=== PATIENT | female | born 1935 | race Caucasian/White ===

== ENCOUNTER → 2016-02-26 | Outpatient (CLI) | payer OTHER, MEDICARE ==
[~2016-02-26] VITALS: Ht 170.2 cm; Wt 71.8 kg
[~2016-02-26] MED LIST: ATIVAN0.5 MG PO; IBUPROFEN 200200 M1 PO; LEXAPRO5 MG PO; MOBIC15 MG PO
--- NOTE | ~2016-02-26 | HPC ---
[facility] [address] [place] [address] PAIN MANAGEMENT CONSULTATION Name: PERNELL CERVANTES Room #: REG DINA Coates.#: [id number] Admission: 02/26/16 Attend Phys: Doron Dumont DO Discharge: Date of : 37 Report #: [id number] THIS REPORT FOR: //name// CC: Los Dumont DATE OF SERVICE: 02/26/2016 The patient is a pleasant 80-year-old female, prior treated for symptomatic lumbar radiculopathy, had a series of epidural injections back in 2014 with good efficacy. She was seen 1 time in May of this year for radicular symptoms. Her injection in May afforded near 75% relief for a number of months and only recurred in January. In the interval since we last saw her; however, she developed a mild cough. X-ray found pulmonary nodules. She was diagnosed with lung cancer that was treated and finished chemoradiation therapy in December. Fortunately, she noted about 40% reduction in the tumor. Has had recurrence of back and bilateral leg pain, started [place] without antecedent trauma and overuse. Rates the pain 4/10, exacerbated with walking and driving. Notes pain is in the low back, right greater than left leg, posterior thigh. PHYSICAL EXAMINATION: Shows 80-year-old female, BMI is 24.8 kilograms per meter squared. Blood pressure is 146/80, pulse 86, respirations 16. Rises from chair using armrest, nominally antalgic gait, positive straight leg raise on the right with decreased right plantarflexion strength. We reviewed diagnostic findings including prior MRI from 09/08/2014 noting L5-S1 to have 2 mm anterolisthesis, facet ligamentous arthropathy, likely causing some neural foraminal compromise at this level. ASSESSMENT: Symptomatic lumbar radiculopathy secondary to spinal stenosis. RECOMMENDATIONS: Epidural injection under fluoroscopy today at L5-S1, continue baseline medication unchanged. Follow up p.r.n. ASSESSMENT: Symptomatic lumbar radiculopathy. PROCEDURE: Lumbar epidural injection under fluoroscopy. PROCEDURE NOTE: After both written and informed consent to include risk of spinal cord damage, increased pain, weakness and dural puncture, the patient was taken to the fluoroscopy suite, placed in the prone position. After sterile prep and drape, a skin wheal with lidocaine was raised. A 22-gauge epidural Tuohy needle was inserted in the midline at L5-S1 with good loss to resistance. Negative aspiration for cerebrospinal fluid or blood was noted. Then 1 mL of Omnipaque under biplanar fluoroscopy showed good spread within the epidural space. This was followed with 80 mg of triamcinolone plus 1 mL of 1.5% [place] [address] PAIN MANAGEMENT CONSULTATION Name: PERNELL CERVANTES Room #: LENIN Hennessy#: [id number] Admission: 02/26/16 Attend Phys: Doron Dumont DO Discharge: Date of : 37 Report #: [id number] preservative-free Xylocaine, 0.5 mL Xylocaine was then injected to flush the needle; it was removed. The patient was monitored for an appropriate period of time and discharged in good and stable condition. <ELECTRONICALLY SIGNED> By: Doron Dumont DO 03/02/16 0729 1247 [id number] Doron Dumont DO /nt
[2016-02-26 11:14] VITALS: BP 146/80
== END | disposition home or self-care (01) ==
LOC: PAIN 02-22 07:27
DX: M48.06 Spinal stenosis, lumbar region (principal); M54.16 Radiculopathy, lumbar region; Z85.118 Personal history of other malignant neoplasm of bronchus and lung

== ENCOUNTER → 2016-05-27 | Outpatient (CLI) | payer OTHER, MEDICARE ==
[~2016-05-27] VITALS: Ht 165.1 cm; Wt 74.4 kg
[~2016-05-27] MED LIST changes: +ALEVE220 M1 PO
--- NOTE | ~2016-05-27 | HPC ---
[facility] [place] [address] [place] [address] PAIN MANAGEMENT CONSULTATION Name: PERNELL CERVANTES Room #: REG [facility] Jaxon.#: [id number] Admission: 05/27/16 Attend Phys: Doron Dumont DO Discharge: Date of : 37 Report #: [id number] THIS REPORT FOR: //name// CC: Los Dumont DATE OF SERVICE: 05/27/2016 The patient is a pleasant 80-year-old female, prior seen in the pain clinic 02/26/2016, given epidural injection for ongoing spinal stenosis. The patient returns to pain clinic today noting that the injection afforded near 100% relief for 2 months, pain has gradually recurred. She is less able to walk and stand. Pain is low back, right buttock and leg. PHYSICAL EXAMINATION: Shows 80-year-old female, BMI is 27.3 kilograms per meter squared. Vital signs stable as noted on the EMR. Rises from chair using armrest, modestly antalgic gait. Hip flexion strength is diminished symmetrically. Right leg is generally a little bit weaker to extension and dorsiflexion. Left leg is about 4/5, right leg is 3-4/5. Does have neurogenic claudication with pain exacerbated while walking or standing greater than about 30-40 minutes. MRI is moderately dated from 09/2014 noting degenerative changes throughout the lumbar spine, anterolisthesis at L5-S1. ASSESSMENT: Symptomatic lumbar radiculopathy secondary to spinal stenosis. RECOMMENDATION: 1. Discussion with the patient today about therapeutic options. We have elected to refer to physical therapy for core strengthening and specifically strengthening thighs. She is having difficulty rising from chair. 2. Epidural injection under fluoroscopy today at L5-S1. 3. Follow up simply as needed. PROCEDURE NOTE: Lumbar epidural injection under fluoroscopy. PROCEDURE NOTE: After both written and informed consent to include risk of spinal cord damage, increased pain, weakness and dural puncture, the patient was taken to the fluoroscopy suite, placed in the prone position. After sterile prep and drape, a skin wheal with lidocaine was raised. A 22-gauge epidural Tuohy needle was inserted in the midline at L5-S1 with good loss to resistance. Negative aspiration for cerebrospinal fluid or blood was noted. Then 1 mL of Omnipaque under biplanar fluoroscopy showed good spread within the epidural space. This was followed with 80 mg of triamcinolone plus 1 mL of 1.5% preservative-free Xylocaine, 0.5 mL Xylocaine was then injected to flush the [address] [address] PAIN MANAGEMENT CONSULTATION Name: BILLYPERNELL KASSANDRA Room #: REG [facility].#: [id number] Admission: 05/27/16 Attend Phys: Doron Dumont DO Discharge: Date of : 37 Report #: [id number] needle; it was removed. The patient was monitored for an appropriate period of time and discharged in good and stable condition. <ELECTRONICALLY SIGNED> By: Doron Dumont DO 05/30/16 1538 1228 1531 Doron Dumont DO /nt
[2016-05-27 10:08] VITALS: BP 134/61
== END ==
LOC: PAIN 06:48
DX: M54.16 Radiculopathy, lumbar region (principal); M48.06 Spinal stenosis, lumbar region

== ENCOUNTER → 2017-03-09 | Outpatient (CLI) | payer OTHER, MEDICARE ==
[~2017-03-09] VITALS: Ht 170.2 cm; Wt 76.8 kg
--- NOTE | ~2017-03-09 | HPC ---
[facility] [place] [address] [place] [address] PAIN MANAGEMENT CONSULTATION Name: PERNELL CERVANTES Room #: REG [facility] MAna.#: [id number] Admission: 03/09/17 Attend Phys: Doron Dumont DO Discharge: Date of : 37 Report #: [id number] THIS REPORT FOR: //name// CC: [place] Dumont DATE OF SERVICE: 03/10/2017 The patient is a 81-year-old female, prior seen in Pain Clinic on 02/26/2016, diagnosed with symptomatic lumbar radiculopathy, given a single epidural injection L5-S1. She returns to Pain Clinic today noting the injection afforded 100% relief for about 8 months. Again that injection had been in 02/2016, nearly a year ago. She notes the pain has begun to recur without antecedent trauma and overuse. Notes pain is in the low back, buttock, and left leg, rates as a 10 on a VAS, exacerbated with walking and standing. PHYSICAL EXAMINATION: Shows a 81-year-old female. BMI is 26.5 kg/m2. Vital signs stable as noted in the EMR. Rises from chair using armrest, modestly antalgic gait, positive straight leg raise on the left with slight decreased plantar flexion strength on this side. The patient does not have osteoarthritis by history. Does rate her pain a 10 on a VAS, has not fallen last 3 months. MEDICATIONS: List was reconciled today. SOCIAL HISTORY: She does not use tobacco products. We reviewed her MRI, somewhat dated from 09/2014, which does note anterolisthesis of L5 on S1 with facet degenerative changes noted. ASSESSMENT: Symptomatic lumbar radiculopathy with clinical exam and history. RECOMMENDATIONS: Lumbar epidural injection under fluoroscopy today at L5-S1. Follow up in 3 week for reevaluation. Cancel if doing well. PROCEDURE: Lumbar epidural steroid injection. PROCEDURE NOTE: After both written and informed consent to include risk of spinal cord damage, increased pain, weakness and dural puncture, the patient was taken to the fluoroscopy suite, placed in the prone position. After sterile prep and drape, a skin wheal with lidocaine was raised. A 22-gauge epidural Tuohy needle was inserted in the midline at L5-S1 with good loss to resistance. Negative aspiration for cerebrospinal fluid or blood was noted. Then 1 mL of [address] [address] PAIN MANAGEMENT CONSULTATION Name: PERNELL CERVANTES Room #: REG Klaus Hennessy#: [id number] Admission: 03/09/17 Attend Phys: Doron Dumont DO Discharge: Date of : 37 Report #: [id number] Omnipaque under biplanar fluoroscopy showed good spread within the epidural space. This was followed with 80 mg of triamcinolone plus 1 mL of 1.5% preservative-free Xylocaine, 0.5 mL Xylocaine was then injected to flush the needle; it was removed. The patient was monitored for an appropriate period of time and discharged in good and stable condition. <ELECTRONICALLY SIGNED> By: Doron Dumont DO 03/13/17 0715 0958 09 Doron Dumont DO /nt
[2017-03-09 12:47] VITALS: BP 140/81
== END | disposition home or self-care (01) ==
LOC: PAIN 06:52
DX: M54.16 Radiculopathy, lumbar region (principal); G89.29 Other chronic pain; Z98.890 Other specified postprocedural states

== ENCOUNTER → 2017-03-23 | Outpatient (CLI) | payer OTHER, MEDICARE ==
[~2017-03-23] VITALS: Ht 170.2 cm; Wt 75.3 kg
--- NOTE | ~2017-03-23 | HPC ---
[facility] [place] [address] [place] [address] PAIN MANAGEMENT CONSULTATION Name: PERNELL CERVANTES Room #: REG [facility] Jaxon.#: [id number] Admission: 03/23/17 Attend Phys: Doron Dumont DO Discharge: Date of : 37 Report #: [id number] THIS REPORT FOR: //name// CC: Los Dumont The patient is a 81-year-old female, prior seen in the pain clinic on 03/09/2017. We used an epidural injection for ongoing lumbar radicular pain. The patient had an injection on 03/09/2017, prior injection on 02/26/2016 and prior injections had been in 2015. Returns to the pain clinic today noting all her symptoms are generally improved. She was doing well, but pain continues to be problematic when she climbs stairs. Pain is in the low back, left buttock and leg, posterior aspect. PHYSICAL EXAMINATION: Shows pain with lower extremity flexion. Positive straight leg raise bilaterally, left greater than right. ASSESSMENT: Symptomatic lumbar radiculopathy, clinical exam and history. RECOMMENDATIONS: 1. We will repeat epidural injection under fluoroscopy today. 2. Refer to physical therapy for core stabilization exercises. Epidural injection under fluoroscopy today at L5-S1. Referral to physical therapy for core stabilization. Follow up simply as needed. ASSESSMENT: Symptomatic lumbar radiculopathy. PROCEDURE: Lumbar epidural injection under fluoroscopy. PROCEDURE NOTE: After both written and informed consent to include risk of spinal cord damage, increased pain, weakness and dural puncture, the patient was taken to the fluoroscopy suite, placed in the prone position. After sterile prep and drape, a skin wheal with lidocaine was raised. A 22-gauge epidural Tuohy needle was inserted in the midline at L5-S1 with good loss to resistance. Negative aspiration for cerebrospinal fluid or blood was noted. Then 1 mL of Omnipaque under biplanar fluoroscopy showed good spread within the epidural space. This was followed with 80 mg of triamcinolone plus 1 mL of 1.5% preservative-free Xylocaine, 0.5 mL Xylocaine was then injected to flush the needle; it was removed. The patient was monitored for an appropriate period of time and discharged in good and stable condition. <ELECTRONICALLY SIGNED> By: Doron Dumont DO 03/24/17 0845 1702 2227 Doron Dumont DO /nt
[2017-03-23 12:41] VITALS: BP 135/73
== END ==
LOC: PAIN 07:14
DX: M54.16 Radiculopathy, lumbar region (principal)

== ENCOUNTER → 2017-12-01 | Outpatient (CLI) | payer OTHER, MEDICARE ==
[~2017-12-01] VITALS: Ht 170.2 cm; Wt 79.5 kg
--- NOTE | ~2017-12-01 | HPC ---
[facility] [address] [place] [address] PAIN MANAGEMENT CONSULTATION Name: PERNELL CERVANTES Room #: REG DINA Gerhard#: [id number] Admission: 12/01/17 Attend Phys: Horace Buchanan MD Discharge: Date of : 37 Report #: [id number] THIS REPORT FOR: //name// CC: Los Buchanan DATE OF SERVICE: 12/01/2017 PRIMARY CARE PHYSICIAN: Dr. [place]. FOLLOWUP HISTORY: The patient is an 82-year-old female who has been followed in the pain clinic because of chronic pain. She is experiencing pain and discomfort in the low back area. She has undergone epidural steroid injections and benefits from these. At this juncture, she has noted a recurrence of pain and discomfort involving her left low back area with pain radiating down into her buttocks. She has undergone epidural steroids and gleaned benefits from these. At this juncture, she would like to proceed with another epidural steroid injection. She has gleaned greater than 50% improvement. Rates her pain as a 7/10. Notes that the pain is worse when she is walking, standing, climbing stairs and sometimes problematic while she is sleeping. Notes that the pain started to worsen about 2 weeks ago when she was working on a scrap book. She woke up the next day with significant pain as a result of that. Pain continues to radiate down into her left buttock as well as some pain in both legs with tingling in her toes bilaterally, left side greater than right heel involvement has been noted as well. This is new. ALLERGIES: No known drug allergies. MEDICATIONS: Naprosyn 220 mg daily and Ativan 0.5 mg for depression. PAIN CLINIC ASSESSMENT/PQRS: 1. The patient is not being treated for osteoarthritis or rheumatoid arthritis. 2. Height 5 feet 7 inches, weight 175 pounds, BMI is 27.4. 3. Vital signs: Blood pressure 133/80, pulse 84, respiratory rate 16, room air saturation was 99%. Pain intensity 7/10. 4. Fall risk. The patient has not fallen in the last 3 months. 5. Blood thinner. The patient is not on a blood thinning medication. 6. Hypertension. The patient is not being treated for hypertension. 7. Opioid therapy greater than 6 weeks. The patient is not on an opioid regimen. 8. Risk assessment tool, low risk/0/3. 9. Functional assessment tool. 10. Recreational drug use. The patient denies use of recreational drugs. 11. Tobacco: The patient has never smoked. 12. Alcohol use. The patient drinks an occasional glass of wine. [address] [address] PAIN MANAGEMENT CONSULTATION Name: BILLYPERNELL KASSANDRA Room #: REG [facility] M..#: [id number] Admission: 12/01/17 Attend Phys: Horace Buchanan MD Discharge: Date of : 37 Report #: [id number] PHYSICAL EXAMINATION: GENERAL: The patient is a well-developed, well-nourished white female. Appears her stated age. She is alert and oriented x 3. Affect is appropriate. Speech is fluent. HEENT: Normocephalic, atraumatic. Extraocular eye muscles intact. Sclerae nonicteric. Mucous membranes are moist. NECK: Without JVD or adenopathy. Upper extremity muscle strength is judged to be 5/5 for the major muscle groups. Bulk and symmetry is within normal limits. HEART: Regular rate. ABDOMEN: Nontender. Bowel sounds present. EXTREMITIES: Lower extremity. The patient has pain and discomfort radiating down the lower portion of her back involving the L5-S1 dermatomal distribution primarily on the left side. Also, has some pain and discomfort on the right, notes some tingling in her feet bilaterally. IMPRESSION: 1. Symptomatic lumbar radiculopathy with clinical exams which corroborates lumbar radicular pain. 2. Lumbar spondylosis. 3. Dyspepsia. 4. Esophageal reflux. 5. History of hyperlipidemia. 6. Labyrinthitis. RECOMMENDATIONS: We discussed treatment options with the patient. Risks and benefits of an epidural steroid injection were again reviewed. Possible complications of the procedure were reviewed. They include but are not limited to infection, increased muscle soreness, headache, bleeding, worsening of pain, no improvement in pain, paralysis. The patient elects to proceed. PROCEDURE NOTE: The patient was taken to the procedure area. She was assisted in getting on the examination table. She was placed in the prone position. A pillow was placed on her abdomen to bolster and improve positioning. Fluoroscopy using anterior, posterior as well as lateral viewing were implemented. The patient's back was sterilely prepped with a Betadine solution. A 25-gauge needle was then advanced into the left paraspinous area. An infusion of 0.25% bupivacaine was performed. A 17-gauge Tuohy with loss of resistance technique was used to gain access to the epidural space. There was no CSF, heme or paresthesia. Total of 80 mg Depo-Medrol, 40 mg triamcinolone and 2 mL of 0.25% bupivacaine was injected. The patient tolerated the procedure well. There were no complications. She remained in the pain clinic for an appropriate amount of time. She will follow up in the future as needed. [address] [address] PAIN MANAGEMENT CONSULTATION Name: PERNELL CERVANTES Room #: REG DINA Hennessy#: [id number] Admission: 12/01/17 Attend Phys: Horace Buchanan MD Discharge: Date of : 37 Report #: [id number] We would like to thank you for letting us participate in her care. We hope she continues to improve. By: 1831 5 Horace Buchanan MD /PMT
[2017-12-01 10:55] VITALS: BP 133/80
== END | disposition home or self-care (01) ==
LOC: PAIN 07:26
DX: M47.26 Other spondylosis with radiculopathy, lumbar region (principal); G89.29 Other chronic pain; R10.13 Epigastric pain; K21.9 Gastro-esophageal reflux disease without esophagitis; H83.09 Labyrinthitis, unspecified ear; F32.9 Major depressive disorder, single episode, unspecified; Z79.899 Other long term (current) drug therapy

== ENCOUNTER → 2018-01-03 | Outpatient (CLI) | payer OTHER, MEDICARE ==
[~2018-01-03] VITALS: Ht 170.2 cm; Wt 77.9 kg
[~2018-01-03] MED LIST changes: +NEURONTIN 300300 M1 PO
--- NOTE | ~2018-01-03 | HPC ---
[facility] [place] [address] [place] [address] PAIN MANAGEMENT CONSULTATION Name: PERNELL CERVANTES Room #: REG DINA Jaxon.#: [id number] Admission: 01/03/18 Attend Phys: Horace Buchanan MD Discharge: Date of : 37 Report #: [id number] THIS REPORT FOR: //name// CC: Los Buchanan DATE OF SERVICE: 01/03/2018 CHIEF COMPLAINT: Low back pain that goes down the left buttocks and down to the left thigh severe burning down in my left foot and heel. I can hardly walk on it at times. FOLLOWUP HISTORY: The patient is an 82-year-old female who has been seen in the pain clinic because of chronic pain. She has been experiencing pain, which has been problematic. It involves her left leg. States the pain is radiating down into her left thigh, left foot and heel with a burning sensation. She has undergone epidural steroid injections in the past and gleaned benefits from these. She returns today with a desire to undergo another injection. She has had no complications from the procedure. Gleans generally greater than 50% improvement after the pain. She rates her pain today as an 8/10. Denies any change in bowel or bladder function. ALLERGIES: No known drug allergies. MEDICATIONS: Naprosyn 220 mg daily and Ativan 0.5 mg for depression. PAIN CLINIC ASSESSMENT/PQRS: 1. The patient is not being treated for osteoarthritis or rheumatoid arthritis. 2. Height 5 feet 7 inches, weight 171 pounds, BMI is 26.9. 3. Vital signs: Blood pressure 155/75, pulse 87, respiratory rate 16, room air saturation 98%. 4. Pain intensity 09/15. 5. Fall risk. The patient has not fallen in the last 3 months. 6. Blood thinner. The patient is not on a blood thinning medication. 7. History of hypertension. The patient is not being treated for hypertension. 8. Opiate therapy greater than 6 weeks. The patient's receives her medications from one source, as she is not using opioid medications. Finds that gabapentin is helpful. 9. Risk assessment tool, low 0/3 for opioid use. 10. Functional assessment 47/70. 11. Recreational drug use. The patient denies use of recreational drugs. 12. Tobacco: The patient has never smoked. 13. Alcohol. The patient drinks alcoholic beverages 2-3 on occasion. They are glasses of wine. PHYSICAL EXAMINATION: [facility] [address] [place] [address] PAIN MANAGEMENT CONSULTATION Name: PERNELL CERVANTES [id number] Admission: 01/03/18 Attend Phys: Horace Buchanan MD Discharge: Date of : 37 Report #: [id number] GENERAL: The patient is a well-developed, well-nourished white female. Appears her stated age. She is alert and oriented x 3. Her affect is appropriate. Speech is fluent. HEENT: Normocephalic, atraumatic. Extraocular eye muscles intact. Sclerae nonicteric. Mucous membranes are moist. NECK: Without adenopathy or JVD. Upper extremity muscle strength is judged to be 5/5 for the major muscle groups. Bulk and symmetry is within normal limits. HEART: Regular rate. ABDOMEN: Nontender. Bowel sounds are present. EXTREMITIES: Lower extremity pain is rated at 8. The patient is experiencing pain in the low portion of her back with pain that is radiating down into the L5-S1 dermatomal distribution on the left. Note some burning sensation and cramping in her leg in the L5-S1 dermatomal distribution. IMPRESSION: 1. Symptomatic lumbar radiculopathy with clinical exam which correlates with lumbar radicular pain. 2. Lumbar spondylosis. 3. Dyspepsia. 4. Esophageal reflux. 5. History of hyperlipidemia. 6. Labyrinthitis. RECOMMENDATIONS: We discussed treatment options with the patient. Risks and benefits of an epidural steroid injection were again reviewed. Possible complications of the procedure were discussed and they include but are not limited to infection, increased muscle soreness, headache, bleeding, worsening pain, no improvement in pain and the patient elects to proceed. PROCEDURE NOTE: The patient was taken to the procedure area. She was assisted in getting on the examination table. Her back was positioned using a pillow to bolster and improve positioning. Betadine was used to prepare the patient's back. Fluoroscopy using anterior, posterior as well as lateral viewing were implemented. A midline approach in a left paramedian direction was elected at L5-S1. A 0.25% bupivacaine was infiltrated. A 17-gauge Tuohy with loss of resistance technique was used to gain access to the epidural space. There was no CSF, heme or paresthesia. Total of 80 mg Depo-Medrol, 40 mg triamcinolone and 2 mL of 0.25% bupivacaine was injected. The patient tolerated the procedure well. There were no complications. She remained in the Pain Clinic for an appropriate amount of time. The patient was given a script for gabapentin 300 mg 1 p.o. t.i.d. She will continue to try this medication. She will call us if she has any concerns. [address] [address] PAIN MANAGEMENT CONSULTATION Name: PERNELL CERVANTES Room #: REG DINA CoatesDanny#: [id number] Admission: 01/03/18 Attend Phys: Horace Buchanan MD Discharge: Date of : 37 Report #: [id number] We would like to thank you for letting us participate in her care. We hope she continues to improve. By: [id number] Horace Buchanan MD /pratik
[2018-01-03 09:53] VITALS: BP 155/75
== END | disposition home or self-care (01) ==
LOC: PAIN 05:44
DX: M47.26 Other spondylosis with radiculopathy, lumbar region (principal); G89.29 Other chronic pain; K21.9 Gastro-esophageal reflux disease without esophagitis; E78.5 Hyperlipidemia, unspecified; R10.13 Epigastric pain; F32.9 Major depressive disorder, single episode, unspecified; H83.09 Labyrinthitis, unspecified ear; Z79.899 Other long term (current) drug therapy; Z98.890 Other specified postprocedural states

== ENCOUNTER → 2018-04-06 | Outpatient (CLI) | payer OTHER, MEDICARE ==
[~2018-04-06] VITALS: Ht 170.2 cm; Wt 78.7 kg
--- NOTE | ~2018-04-06 | HPC ---
[facility] [place] [address] [place] [address] PAIN MANAGEMENT CONSULTATION Name: PERNELL CERVANTES Room #: REG DINA Jaxon.#: [id number] Admission: 04/06/18 ������������������ Attend Phys: Horace Buchanan MD Discharge: ������������������ Date of : 37 Report #: [id number] THIS REPORT FOR: //name// CC: Los Buchanan DATE OF SERVICE: 04/06/2018 CHIEF COMPLAINT: Low back pain that goes down into the right buttocks and down into the right leg and into the foot. HISTORY: The patient is an 82-year-old female who has been seen in the Pain Clinic in the past because of lumbar radiculopathy. She has undergone epidural steroid injections and gleaned benefits from these. She returns today indicating that she is having pain in the right L5-S1 area. It is radiating down into her leg with numbness and tingling down into her foot. She has undergone epidural steroid injections in the past and would like to proceed with an injection today. She rates her pain as a 4/10. She has a history of lumbar spondylosis and radiculopathy. ALLERGIES: No known drug allergies. MEDICATIONS: Gabapentin 300 mg t.i.d., ibuprofen 200 mg t.i.d., Ativan 0.5 mg p.r.n., depression. PAIN CLINIC ASSESSMENT/PQRS: 1. The patient is not being treated for osteoarthritis or rheumatoid arthritis. 2. Height 5 feet 7 inches, weight 173 pounds, BMI is 27.2. 3. Vital signs: Blood pressure 137/87, pulse 89, respiratory rate 16, room air saturation 96%. 4. Pain intensity, 4/10. 5. Fall risk. The patient has not fallen in the last 3 months. 6. Blood thinner. The patient is not on a blood thinning medication. 7. Hypertension. The patient is not being treated for hypertension. 8. Opioid greater than 6 weeks. The patient is not receiving opioid medication on a regular basis. 9. Risk assessment tool, low for opioid, 0/3 for opioid use. 10. Functional assessment tool, 47/70. 11. Recreational drug use. The patient denies use of recreational drugs. 12. Tobacco: The patient has never smoked. 13. Alcohol. The patient drinks about one alcoholic beverage weekly. PHYSICAL EXAMINATION: GENERAL: The patient is a well-developed, well-nourished white female. Appears her stated age. She is alert and oriented x 3. Her affect is appropriate. Speech is fluent. [address] [address] PAIN MANAGEMENT CONSULTATION Name: PERNELL CERVANTES Room #: REG [facility]#: [id number] Admission: 04/06/18 ������������������ Attend Phys: Horace Buchanan MD Discharge: ������������������ Date of : 37 Report #: [id number] HEENT: Normocephalic, atraumatic. Extraocular eye muscles intact. Sclerae nonicteric. Mucous membranes are moist. NECK: Without adenopathy or JVD. Upper extremity muscle strength is judged to be 5-/5 for the major muscle groups in the upper extremity. Bulk and symmetry is within normal limits. HEART: Regular rate. ABDOMEN: Nontender. Bowel sounds present. EXTREMITIES: Lower extremity muscle strength is judged to be 5-/5 for the lower extremity. The patient has pain and discomfort, which today is more problematic in the right, L5-S1 dermatomal distribution. IMPRESSION: 1. Symptomatic lumbar radiculopathy with a correlation of pain radiating down the L5-S1 dermatomal distribution on the right. 2. Lumbar spondylosis. 3. Dyspepsia. 4. Esophageal reflux. 5. History of hyperlipidemia. 6. Labyrinthitis. RECOMMENDATIONS: We discussed treatment options with the patient. Risks and benefits of an epidural steroid injection were discussed. Possible complications of the procedure were reviewed. They include but are not limited to infection, worsening pain, no improvement in pain, nerve damage, paralysis and the patient elects to proceed. PROCEDURE NOTE: The patient was taken to the procedure area. She was assisted in getting on the examination table. Her back was sterilely prepped with a Betadine solution. A pillow had been placed under her abdomen to bolster improve positioning. Fluoroscopy using anterior and posterior as well as lateral viewing were implemented. The right L5-S1 area was infiltrated with 0.25% bupivacaine using a 25-gauge needle. A 17-gauge Tuohy with loss of resistance technique using a right paramedian approach was undertaken and there was no CSF, heme or paresthesia. A total of 80 mg Depo-Medrol, 40 mg triamcinolone and 2 mL of 0.25% bupivacaine was injected. The patient's pain decreased to 0 at the time of discharge. An 8 seconds fluoroscopy time was used. We would like to thank you for letting us participate in her care. We hope she continues to improve. ��������������������������������������������� ���������������������������������������� By: ��������������������������������������������� [id number] Horace Buchanan MD /pratik
[2018-04-06 08:28] VITALS: BP 137/87
--- NOTE | 2018-04-06 08:35 | NUR ---
Pain Clinic Assessment: 1. History of Osteoarthritis: NO History of Rheumatoid Arthritis: NO 2. Height: 5 ft. 7 in. 170.2 cm. Weight: 173.4 lb. oz. 78.654 kg. Patient's BMI: 27.2 3. Vital Signs: BP: 137/87 Pulse: 89 Resp: 16 Temp: 02 Sat: 96 ECG Mon: 4. Pain Intensity: 4 5. Fall Risk: Dizziness: N Needs help standing or walking: N Fallen in the last 3 months: N Fall risk comments: 6. Patient on Blood Thinner: None 7. History of Hypertension: N 8. Opioid Therapy greater than 6 weeks: N Opiate Contract Signed: 9. Risk Assessment Tool Provided: LOW RISK 0/3 10. Functional Assessment Tool: 47/ 11. Recreational Drug Use: Never Drug Type: Tobacco Use: Never Smoker Tobacco Type: Amount or Packs/day: How Many Years: Alcohol Use: Yes Frequency: Weekly Quant: 1
== END | disposition home or self-care (01) ==
LOC: PAIN 04-04 07:45
DX: M47.26 Other spondylosis with radiculopathy, lumbar region (principal); G89.29 Other chronic pain; K21.9 Gastro-esophageal reflux disease without esophagitis; F32.9 Major depressive disorder, single episode, unspecified; H83.09 Labyrinthitis, unspecified ear; Z79.899 Other long term (current) drug therapy; Z98.890 Other specified postprocedural states

== ENCOUNTER → 2018-07-11 | Outpatient (CLI) | payer OTHER, MEDICARE ==
[~2018-07-11] VITALS: Ht 170.2 cm; Wt 78.1 kg
--- NOTE | ~2018-07-11 | HPC ---
[facility] [place] [address] PAIN MANAGEMENT CONSULTATION Name: PERNELL CERVANTES Room #: REG DINA DreadCapri.#: [id number] Admission: 07/11/18 ������������������ Attend Phys: Horace Buchanan MD Discharge: ������������������ Date of : 37 Report #: [id number] THIS REPORT FOR: //name// CC: Los Buchanan DATE OF SERVICE: 07/11/2018 FOLLOWUP COMPLAINT: Here for another epidural injection. HISTORY: The patient is an 82-year-old female who has been seen in the Pain Clinic because of lumbar radiculopathy. She has undergone epidural steroid injections and found these beneficial. She returns today indicating that she is having pain in the lower portion of her back with pain that is radiating down into her left foot. She notes a tingling, numbness and tenderness associated with it. Rates the pain as a 6/10. Walking, standing, going up and down stairs are problematic. She has continued to use medications as well as heat. She has a history of lumbar spondylosis and radial and lumbar radiculopathy. ALLERGIES: No known drug allergies. CURRENT MEDICATIONS: Gabapentin 300 mg t.i.d., ibuprofen 200 mg t.i.d., Ativan 0.5 mg for depression. PAIN CLINIC ASSESSMENT/PQRS: 1. The patient is not being treated for osteoarthritis or rheumatoid arthritis. 2. Height is 5 feet 7 inches, weight 172 pounds, BMI is 27. 3. Vital Signs: Blood pressure 151/75, pulse 86, respiratory rate 20, room air saturation 100%. 4. Pain intensity, 6/10. 5. Fall history: The patient has not fallen in the last 3 months. 6. Blood thinner. The patient is not on a blood thinning medication. 7. Hypertension. The patient is not being treated for hypertension. 8. Opioids greater than 6 weeks. The patient is not on an opioid contract. 9. Risk assessment tool, 0/3 for opioid use. 10. Functional assessment tool, 47/70 11. Recreational drug use. The patient denies. 12. Tobacco: The patient never smoked. 13. Alcohol: The patient occasionally drinks alcoholic beverages. PHYSICAL EXAMINATION: GENERAL: The patient is a well-developed, well-nourished white female. Appears her stated age. She is alert and oriented x 3. Her affect is appropriate. Speech is fluent. HEENT: Normocephalic, atraumatic. Extraocular eye muscles intact. Sclerae nonicteric. Mucous membranes are moist. [address] [address] PAIN MANAGEMENT CONSULTATION Name: PERNELL CERVANTES Room #: REG [facility]#: [id number] Admission: 07/11/18 ������������������ Attend Phys: Horace Buchanan MD Discharge: ������������������ Date of : 37 Report #: [id number] NECK: Without adenopathy or JVD. HEART: Regular rate. ABDOMEN: Nontender. Bowel sounds present. EXTREMITIES: Upper extremities. Muscle strength is judged to be 5-/5 for the major muscle groups of the upper extremity. Bulk and symmetry is within normal limits. Lower extremity muscle strength is judged to be 5-/5 for the major muscle groups in the lower extremity. The patient has pain which involves the left leg. She has had pain that was involving the right leg in the past in the L5-S1 area. She notes some numbness and weakness in the affected area. IMPRESSION: 1. Symptomatic lumbar radiculopathy with correlation and pain radiating down into the left L5-S1 dermatomal distribution. 2. Lumbar spondylosis. 3. Dyspepsia. 4. Esophageal reflux. 5. History of hyperlipidemia. 6. Labyrinthitis. RECOMMENDATIONS: We discussed treatment options with the patient. Risks and benefits of an epidural steroid injection were again discussed. They could include but are not limited to infection, worsening of pain, no improvement in pain, headache, bleeding, nerve damage, muscle soreness and the patient elects to proceed. PROCEDURE NOTE: The patient was taken to the procedure area. She was then assisted in getting on the examination table. Her back was sterilely prepped with a Betadine solution. A 0.25% bupivacaine was infiltrated in the left low back area in the midline at L5-S1. A 0.25% bupivacaine was infiltrated using a 25-gauge needle. A 17-gauge Tuohy with loss of resistance technique was then used to gain access to the epidural space. There was no CSF, heme or paresthesia. Total of 80 mg Depo-Medrol, 40 mg triamcinolone and 2 mL of 0.25% bupivacaine was injected. Total fluoroscopy time was 11 seconds. The patient's pain at the time of discharge, decreased from 6-0 at the time of discharge. She will follow up in the future as needed. We would like to thank you for letting us participate in her care. We hope she continues to improve. ��������������������������������������������� ���������������������������������������� By: ��������������������������������������������� [id number] Horace Buchanan MD /pratik
[2018-07-11 13:26] VITALS: BP 151/75
--- NOTE | 2018-07-11 13:34 | NUR ---
Pain Clinic Assessment: 1. History of Osteoarthritis: HANDS History of Rheumatoid Arthritis: NO 2. Height: 5 ft. 7 in. 170.2 cm. Weight: 172.2 lb. oz. 78.109 kg. Patient's BMI: 27.0 3. Vital Signs: BP: 151/75 Pulse: 86 Resp: 20 Temp: 02 Sat: 100 ECG Mon: 4. Pain Intensity: 6 5. Fall Risk: Dizziness: N Needs help standing or walking: N Fallen in the last 3 months: N Fall risk comments: 6. Patient on Blood Thinner: None 7. History of Hypertension: N 8. Opioid Therapy greater than 6 weeks: N Opiate Contract Signed: 9. Risk Assessment Tool Provided: LOW RISK 0/3 10. Functional Assessment Tool: 47/ 11. Recreational Drug Use: Never Drug Type: Tobacco Use: Never Smoker Tobacco Type: Amount or Packs/day: How Many Years: Alcohol Use: Yes Frequency: Monthly Quant:
== END | disposition home or self-care (01) ==
LOC: PAIN 07:01
DX: M47.26 Other spondylosis with radiculopathy, lumbar region (principal); G89.29 Other chronic pain; K21.9 Gastro-esophageal reflux disease without esophagitis; E78.5 Hyperlipidemia, unspecified; F32.9 Major depressive disorder, single episode, unspecified; Z79.899 Other long term (current) drug therapy; Z87.19 Personal history of other diseases of the digestive system; Z98.890 Other specified postprocedural states

== ENCOUNTER → 2018-10-12 | Outpatient (CLI) | payer OTHER, MEDICARE ==
[~2018-10-12] VITALS: Ht 170.2 cm; Wt 76.8 kg
--- NOTE | ~2018-10-12 | HPC ---
[facility] [place] [address] PAIN MANAGEMENT CONSULTATION Name: PERNELL CERVANTES Room #: REG DINA Jaxon.#: [id number] Admission: 10/12/18 ������������������ Attend Phys: Horace Buchanan MD Discharge: ������������������ Date of : 37 Report #: [id number] THIS REPORT FOR: //name// CC: Los Buchanan DATE OF SERVICE: 10/12/2018 CHIEF COMPLAINT: Pain in the low back area at the left and right side, right is worse. HISTORY: The patient is an 83-year-old female who has been followed in the pain clinic. She has problems with lumbar radiculopathy. Epidural steroid injections have been helpful. She returns today indicating that her pain has increased. She is having some numbness, tingling associated with it. Rates her pain today as a 6/10 with use of Advil. Describes it as numbness, tingling, tenderness, and deep ache, which is worse with standing, walking, climbing stairs, activity, and sitting on the toilet. She has gleaned benefits in the past and would like to proceed with an epidural steroid injection at this point. ALLERGIES: No known drug allergies. CURRENT MEDICATIONS: Gabapentin 300 mg t.i.d., ibuprofen 200 mg t.i.d., and Ativan 0.5 mg for depression. PAIN CLINIC ASSESSMENT/PQRS: 1. The patient is not being treated for osteoarthritis or rheumatoid arthritis. 2. Height 5 feet 7 inches, weight 169 pounds, BMI is 26.5. 3. Vital signs: Blood pressure 139/79, pulse 86, respiratory rate 16, room air saturation 98%. 4. Pain intensity 6/10 with use of Advil. 5. Fall risk. The patient has not fallen in the last 3 months. 6. Blood thinner. The patient is not on a blood thinning medication. 7. Hypertension. The patient is not being treated for hypertension. 8. Opioids greater than 6 weeks. The patient is opioids on a regular basis. 9. Risk assessment tool, low for opioid use. 10. Functional assessment tool, 47. 11. Recreational drug use. The patient denies. 12. Tobacco: The patient has never smoked. 13. Alcohol: The patient occasionally drinks alcoholic beverage. PHYSICAL EXAMINATION: GENERAL: The patient is a well-developed, well-nourished white female. Appears her stated age. She is alert and oriented x 3. [place] [address] PAIN MANAGEMENT CONSULTATION Name: PERNELL CERVANTES Room #: REG [facility]#: [id number] Admission: 10/12/18 ������������������ Attend Phys: Horace Buchanan MD Discharge: ������������������ Date of : 37 Report #: [id number] Speech is fluent. HEENT: Normocephalic, atraumatic. Extraocular eye muscles intact. Sclerae nonicteric. Mucous membranes are moist. NECK: Without adenopathy or JVD. HEART: Regular rate. ABDOMEN: Nontender. Bowel sounds present. EXTREMITIES: Upper extremity muscle strength is judged to be 5-/5 for the major muscle groups in the upper extremity. The patient without significant scoliosis, kyphosis, or lordosis. The patient has pain in the lower portion of her back. Has pain that is radiating down into her left and the right leg, right more problematic than left. This is the L5-S1 dermatomal distribution. Has a perception of numbness and weakness in the lower extremities. IMPRESSION: 1. Symptomatic lumbar radiculopathy with correlation of pain radiating down into the left L5-S1 area as well as the right side more problematic today. 2. Lumbar spondylosis. 3. Dyspepsia. 4. Esophageal reflux. 5. History of hyperlipidemia. 6. Labyrinthitis. RECOMMENDATIONS: We discussed treatment options with the patient. Risks and benefits of an epidural steroid injection were again reviewed. They include but are not limited to infection, worsening of pain, no improvement in pain, and the patient elects to proceed. PROCEDURE NOTE: The patient was taken to the procedure area. She was then assisted in getting on examination table. Her back was sterilely prepped with a Betadine solution. A 0.25% bupivacaine was infiltrated in the L5-S1 area. A pillow had been placed under the abdomen to bolster and improve positioning. The area was infiltrated with 0.25% bupivacaine using a 25-gauge needle. A 17-gauge Tuohy with loss of resistance technique was then used to gain access to the epidural space. There was no CSF, heme, or paresthesia. A total of 9 seconds fluoroscopy time was used. The patient's pain decreased to 0 at the time of discharge. 80 mg Depo-Medrol, 40 mg triamcinolone, and 3 mL of 0.25% bupivacaine was injected to help with the pain control. The patient was then taken to the recovery room. She remained in the recovery room for an appropriate amount of time. She will follow up in the future as needed. We would like to thank you for letting us participate in her care. We hope she continues to improve. ��������������������������������������������� ���������������������������������������� By: ��������������������������������������������� [id number] Horace Buchanan MD /PMT
[2018-10-12 08:47] VITALS: BP 139/79
--- NOTE | 2018-10-12 08:57 | NUR ---
Pain Clinic Assessment: 1. History of Osteoarthritis: HANDS History of Rheumatoid Arthritis: NO 2. Height: 5 ft. 7 in. 170.2 cm. Weight: 169.4 lb. oz. 76.839 kg. Patient's BMI: 26.5 3. Vital Signs: BP: 139/79 Pulse: 86 Resp: 16 Temp: 02 Sat: 98 ECG Mon: 4. Pain Intensity: 6 WITH ADVIL 5. Fall Risk: Dizziness: N Needs help standing or walking: N Fallen in the last 3 months: N Fall risk comments: 6. Patient on Blood Thinner: None 7. History of Hypertension: N 8. Opioid Therapy greater than 6 weeks: N Opiate Contract Signed: 9. Risk Assessment Tool Provided: LOW RISK 0/3 10. Functional Assessment Tool: 47/70 11. Recreational Drug Use: Never Drug Type: Tobacco Use: Never Smoker Tobacco Type: Amount or Packs/day: How Many Years: Alcohol Use: Yes Frequency: Quant:
== END | disposition home or self-care (01) ==
LOC: PAIN 06:47
DX: M54.16 Radiculopathy, lumbar region (principal); G89.29 Other chronic pain; M47.896 Other spondylosis, lumbar region; I10 Essential (primary) hypertension; K21.9 Gastro-esophageal reflux disease without esophagitis; E78.5 Hyperlipidemia, unspecified; Z87.19 Personal history of other diseases of the digestive system; Z79.891 Long term (current) use of opiate analgesic; Z79.899 Other long term (current) drug therapy; Z98.890 Other specified postprocedural states

== ENCOUNTER → 2019-01-02 | Outpatient (CLI) | payer OTHER, MEDICARE ==
[~2019-01-02] VITALS: Ht 170.2 cm; Wt 75.3 kg
[~2019-01-02] MED LIST changes: +ASA81BEC PO; -ATIVAN0.5 MG PO; +Ativan 0.5 MG PO; +OMEPRAZOLE40 MG PO; +PLAVIX 75 MG TA75 MG PO
[2019-01-02 10:35] VITALS: BP 140/68
--- NOTE | 2019-01-02 10:59 | NUR ---
Pain Clinic Assessment: 1. History of Osteoarthritis: HANDS History of Rheumatoid Arthritis: NO 2. Height: 5 ft. 7 in. 170.2 cm. Weight: 166.0 lb. oz. 75.297 kg. Patient's BMI: 26.0 3. Vital Signs: BP: 140/68 Pulse: 89 Resp: 16 Temp: 02 Sat: 100 ECG Mon: 4. Pain Intensity: 8 5. Fall Risk: Dizziness: N Needs help standing or walking: N Fallen in the last 3 months: N Fall risk comments: 6. Patient on Blood Thinner: Clopidogrel Bisulf(Plavix 7. History of Hypertension: N 8. Opioid Therapy greater than 6 weeks: N Opiate Contract Signed: 9. Risk Assessment Tool Provided: LOW RISK 0/3 10. Functional Assessment Tool: 47/ 11. Recreational Drug Use: Never Drug Type: Tobacco Use: Never Smoker Tobacco Type: Amount or Packs/day: How Many Years: Alcohol Use: Yes Frequency: Quant:
--- NOTE | 2019-01-07 19:28 | HPC ---
[facility] [place] [address] PAIN MANAGEMENT CONSULTATION Name: PERNELL CERVANTES Room #: REG DINA Gerhard#: [id number] Admission: 01/02/19 Attend Phys: Horace Buchnaan MD Discharge: Date of : 37 Report #: [id number] THIS REPORT FOR: //name// CC: Los Buchanan DATE OF SERVICE: 01/02/2019 CHIEF COMPLAINT: Have noticed a return of pain down in the right leg and in the left leg. HISTORY: The patient is an 83-year-old female who has been seen and followed in the pain clinic because of lumbar radiculopathy. Epidural steroid injection in the past have been beneficial. She has noted some tingling, numbness and weakness down into her left leg at this point. She has pain, which can be quite problematic in the morning as well as in the evening. She has noted some weakness in her right leg. She uses her right hand to help lift her leg into the car. She also has noticed some improvement in the sounds that she has been here in her left ear. She was worked up and found to have possibility of a clot in the vein of her left ear. She has been using Plavix. She has noticed that the sound has decreased. Does have some decreased hearing in this area since this episode. Whine noises and loud noises can still be problematic. She would like to proceed with an epidural steroid injection. Notes that climbing stairs, sitting on the toilet, bending and twisting can exacerbate her discomfort. ALLERGIES: No known drug allergies. CURRENT MEDICATIONS: Gabapentin 300 mg t.i.d., ibuprofen 200 mg t.i.d., Ativan 0.5 mg for depression, Plavix. PAIN CLINIC ASSESSMENT AND PQRS: 1. The patient is not being treated for osteoarthritis or rheumatoid arthritis. 2. Height 5 feet 7 inches, weight 166 pounds, BMI is 26. 3. Vital Signs: Blood pressure 140/68, pulse 89, respiratory rate 16, room air saturation 100%. 4. Pain intensity 09/15. 5. Fall history: The patient has not fallen in the last 3 months. 6. Blood thinner. The patient is on Plavix and has stopped this over the last few days prior to the injection. 7. History of hypertension. The patient is not being treated for hypertension. 8. Opioids greater than 6 weeks. The patient is not receiving medications on a regular basis. 9. Risk assessment tool, low for opioid use. 10. Functional assessment tool 47/. 11. Recreational drugs. The patient denies use of recreational drugs. 12. Tobacco: [place] [address] PAIN MANAGEMENT CONSULTATION Name: BILLYPERNELL KASSANDRA Room #: REG DINA Hennessy#: [id number] Admission: 01/02/19 Attend Phys: Horace Buchanan MD Discharge: Date of : 37 Report #: [id number] 13. Alcohol. The patient occasionally drinks an alcoholic beverage. PHYSICAL EXAMINATION: GENERAL: The patient is a well-developed, well-nourished white female. Appears her stated age. She is alert and oriented x 3. Her affect is appropriate. Speech is fluent. HEENT: Normocephalic, atraumatic. Extraocular eye muscles intact. Sclerae nonicteric. Mucous membranes are moist. NECK: Without adenopathy or JVD. HEART: Regular rate. ABDOMEN: Nontender. EXTREMITIES: Upper extremity muscle strength judged to be 5/5 for the major muscle groups in the upper extremity. The patient is without scoliosis, kyphosis or lordosis. Has pain and discomfort in the lower leg, particularly radiating down into the right leg at this point. Has some pain and discomfort in the L5-S1 dermatomal distribution on the right. Has some perception of weakness as well. IMPRESSION: 1. Symptomatic lumbar radiculopathy, primarily on the right side with pain radiating down into the L5-S1 dermatomal distribution today. 2. Lumbar spondylosis. 3. Dyspepsia. 4. Esophageal reflux. 5. History of hyperlipidemia. 6. Labyrinthitis -- blood clot found in the vein in her ear, improved with use of Plavix. RECOMMENDATIONS: We discussed treatment options with the patient. Risks and benefits of an epidural steroid injection were discussed. They could include but are not limited to infection, worsening pain, no improvement in pain and the patient elects to proceed. PROCEDURE NOTE: The patient was taken to the procedure area. She was then assisted in getting on examination table. Her back was sterilely prepped with a Betadine solution. Fluoroscopy using anterior, posterior as well as lateral viewing were implemented. A 25-gauge needle was used to anesthetize the L5-S1 area. A 17-gauge Tuohy with loss of resistance technique was used to gain access to the epidural space. There was no CSF, heme or paresthesia. A total of 80 mg Depo-Medrol, 40 mg triamcinolone and 2 mL of 0.25% bupivacaine was injected. The patient tolerated the procedure well. There were no complications. We would like to thank you for letting us participate in her care. [address] [address] PAIN MANAGEMENT CONSULTATION Name: PERNELL CERVANTES Room #: REG DINA CoatesDanny#: [id number] Admission: 01/02/19 Attend Phys: Horace Buchanan MD Discharge: Date of : 37 Report #: [id number] Total of 8 seconds fluoroscopy time was used. <ELECTRONICALLY SIGNED> By: Horace Buchanan MD 01/07/19 [id number] Horace Buchanan MD /nt
== END | disposition home or self-care (01) ==
LOC: PAIN 06:49
DX: M47.26 Other spondylosis with radiculopathy, lumbar region (principal); R10.13 Epigastric pain; K21.9 Gastro-esophageal reflux disease without esophagitis; E78.5 Hyperlipidemia, unspecified; H83.09 Labyrinthitis, unspecified ear; M19.90 Unspecified osteoarthritis, unspecified site; I10 Essential (primary) hypertension; Z79.899 Other long term (current) drug therapy; Z79.01 Long term (current) use of anticoagulants; Z79.82 Long term (current) use of aspirin

== ENCOUNTER → 2019-03-27 | Outpatient (CLI) | payer OTHER, MEDICARE ==
[~2019-03-27] VITALS: Ht 170.2 cm; Wt 73.7 kg
[~2019-03-27] MED LIST changes: +MEDROLDOSEPACK PO; +TRAMADOL 50 MG50 MG PO
--- NOTE | ~2019-03-27 | HPC ---
[facility] [place] [address] [place] [address] PAIN MANAGEMENT CONSULTATION Name: PERNELL CERVANTES Room #: REG DINA Coates.#: [id number] Admission: 03/27/19 Attend Phys: Horace Buchanan MD Discharge: Date of : 39 Report #: [id number] THIS REPORT FOR: cc: [place] MD,[place] Buchanan,Horace Hough MD ~ CC: [place] Buchanan DATE OF SERVICE: 03/27/2019 CHIEF COMPLAINT: Pain in the back and in the right leg. HISTORY: The patient is an 83-year-old female who has been followed in the pain clinic because of chronic pain. She has undergone epidural steroid injections in the past. She returns today with pain in her hands secondary to osteoarthritis. Also, has pain, which is radiating down into her legs. She rates her pain today as an 8/10. She also is experiencing some numbness in her feet with tingling. Right side is more problematic than the left. Notes some weakness in her right leg. She has found the medications are helpful. She has returned today with hopes of renewing her medications. Notes that walking, standing, and climbing stairs are problematic. Does have some discomfort while she is sitting on a toilet. Also, has pain when she is sitting on chairs, which are low in height. Does have some ringing in her left ear. As a result of the chronic ringing, she does take Plavix. ALLERGIES: No known drug allergies. CURRENT MEDICATIONS: Gabapentin 300 mg t.i.d., ibuprofen 200 mg t.i.d., Ativan 0.5 mg for depression, and Plavix. PAIN CLINIC ASSESSMENT AND PQRS: 1. The patient is not being treated for osteoarthritis or rheumatoid arthritis. 2. Height 5 feet 7 inches, weight 73.6 kilograms. BMI is 25. 3. Blood pressure 143/67, pulse 77, respiratory rate 18, room air saturation 99%. 4. Pain intensity 09/15. 5. Fall history: The patient has not fallen in the last 3 months. 6. Blood thinner. The patient is on Plavix for ringing in her ears. 7. Hypertension. The patient is not being treated for hypertension. 8. Opioids greater than 6 weeks. The patient is not receiving medications on a regular basis for her pain. 9. Risk assessment tool, low for opioid use. 10. Functional assessment tool 47/70. 11. Recreational drug use. The patient denies use of recreational drugs. 12. Tobacco: [place] [address] PAIN MANAGEMENT CONSULTATION Name: PERNELL CERVANTES [id number] Admission: 03/27/19 Attend Phys: Horace Buchanan MD Discharge: Date of : 39 Report #: [id number] 13. Alcohol: The patient occasionally drinks an alcoholic beverage. PHYSICAL EXAMINATION: GENERAL: The patient is a well-developed, well-nourished white female. Appears her stated age. She is alert and oriented x 3. Her affect is appropriate. Speech is fluent. HEENT: Normocephalic, atraumatic. Extraocular eye muscles intact. Sclerae nonicteric. Mucous membranes are moist. The patient does have some ringing in her ears on the left side because of a vein. HEART: Regular rate. NECK: Without adenopathy or JVD. ABDOMEN: Nontender. MUSCULOSKELETAL: Upper extremity muscle strength judged to be 5-/5 for the major muscle groups in the upper extremity. The patient is without significant scoliosis, kyphosis or lordosis. The patient has pain and discomfort in lower portion of her back with pain that radiates down into her left and right leg. Right side is more problematic. The patient has had pain in the L5-S1 dermatomal distribution. Has perception of weakness in her right leg. IMPRESSION: 1. Symptomatic lumbar radiculopathy, primarily on the right with pain radiating down the L5-S1 dermatomal distribution. 2. Lumbar spondylosis. 3. Dyspepsia. 4. Esophageal reflux. 5. History of hyperlipidemia. 6. Labyrinthitis - clot was found in the vein in her ear. Has improved with use of Plavix. RECOMMENDATIONS: We discussed treatment options with the patient. At this juncture, we will continue with her current pain medications. Risk and benefits of opioid medications have been discussed with the patient. She is aware that these medications can be problematic in certain people. She is not on an opioid medication at this juncture. She would like to continue with her current medical regimen and a script for gabapentin 300 mg t.i.d. will be continued. The patient will also monitor her use of ibuprofen given that she is using Plavix. She will try a Medrol Dosepak and note its efficacy. She will also try tramadol 50 mg 1 p.o. t.i.d. She will call us if she has any concerns. We would like to thank you for letting us participate in her care. We hope she continues to improve. By: [id number] Horace Buchanan MD /nt
[2019-03-27 10:59] VITALS: BP 143/67
--- NOTE | 2019-03-27 11:00 | NUR ---
Pain Clinic Assessment: 1. History of Osteoarthritis: HANDS History of Rheumatoid Arthritis: NO 2. Height: 5 ft. 7 in. 170.2 cm. Weight: 162.4 lb. oz. 73.664 kg. Patient's BMI: 25.4 3. Vital Signs: BP: 143/67 Pulse: 77 Resp: 18 Temp: 02 Sat: 99 ECG Mon: 4. Pain Intensity: 8 5. Fall Risk: Dizziness: N Needs help standing or walking: N Fallen in the last 3 months: N Fall risk comments: 6. Patient on Blood Thinner: Clopidogrel Bisulf(Plavix 7. History of Hypertension: N 8. Opioid Therapy greater than 6 weeks: N Opiate Contract Signed: 9. Risk Assessment Tool Provided: LOW RISK 0/3 10. Functional Assessment Tool: 47/70 11. Recreational Drug Use: Never Drug Type: Tobacco Use: Never Smoker Tobacco Type: Amount or Packs/day: How Many Years: Alcohol Use: Yes Frequency: Monthly Quant: 2
== END ==
LOC: PAIN 06:41
DX: M47.26 Other spondylosis with radiculopathy, lumbar region (principal); R10.13 Epigastric pain; K21.9 Gastro-esophageal reflux disease without esophagitis; E78.5 Hyperlipidemia, unspecified; H83.02 Labyrinthitis, left ear; Z79.899 Other long term (current) drug therapy

== ENCOUNTER → 2019-06-14 | Outpatient (CLI) | payer OTHER, MEDICARE ==
[~2019-06-14] VITALS: Ht 170.2 cm; Wt 73.6 kg
[2019-06-14 09:36] VITALS: BP 136/75
--- NOTE | 2019-06-14 09:41 | NUR ---
Pain Clinic Assessment: 1. History of Osteoarthritis: HANDS History of Rheumatoid Arthritis: NO 2. Height: 5 ft. 7 in. 170.2 cm. Weight: 162.2 lb. oz. 73.573 kg. Patient's BMI: 25.4 3. Vital Signs: BP: 136/75 Pulse: 96 Resp: 14 Temp: 02 Sat: 97 ECG Mon: 4. Pain Intensity: 5 5. Fall Risk: Dizziness: N Needs help standing or walking: N Fallen in the last 3 months: N Fall risk comments: 6. Patient on Blood Thinner: Clopidogrel Bisulf(Plavix 7. History of Hypertension: N 8. Opioid Therapy greater than 6 weeks: N Opiate Contract Signed: 9. Risk Assessment Tool Provided: LOW RISK 0/3 10. Functional Assessment Tool: 47/70 11. Recreational Drug Use: Never Drug Type: Tobacco Use: Never Smoker Tobacco Type: Amount or Packs/day: How Many Years: Alcohol Use: Yes Frequency: Quant:
== END | disposition home or self-care (01) ==
LOC: PAIN 04-24 13:42
DX: M54.16 Radiculopathy, lumbar region (principal); G89.29 Other chronic pain

== ENCOUNTER → 2019-11-13 | Outpatient (CLI) | payer OTHER, MEDICARE ==
[~2019-11-13] VITALS: Ht 170.2 cm; Wt 72.7 kg
[~2019-11-13] MED LIST changes: +VITAMIN D3 COM1 EACH PO
[2019-11-13 08:49] VITALS: BP 134/62
--- NOTE | 2019-11-13 09:00 | NUR ---
Pain Clinic Assessment: 1. History of Osteoarthritis: HANDS History of Rheumatoid Arthritis: NO 2. Height: 5 ft. 7 in. 170.2 cm. Weight: 160.2 lb. oz. 72.666 kg. Patient's BMI: 25.1 3. Vital Signs: BP: 134/62 Pulse: 92 Resp: 16 Temp: 02 Sat: 100 ECG Mon: 4. Pain Intensity: 4 5. Fall Risk: Dizziness: N Needs help standing or walking: N Fallen in the last 3 months: N Fall risk comments: 6. Patient on Blood Thinner: Clopidogrel Bisulf(Plavix 7. History of Hypertension: N 8. Opioid Therapy greater than 6 weeks: N Opiate Contract Signed: 9. Risk Assessment Tool Provided: LOW RISK 0/3 10. Functional Assessment Tool: 47/70 11. Recreational Drug Use: Never Drug Type: Tobacco Use: Never Smoker Tobacco Type: Amount or Packs/day: How Many Years: Alcohol Use: Yes Frequency: Quant:
--- NOTE | 2019-12-04 15:48 | HPC ---
[facility] [place] [address] [place] [address] PAIN MANAGEMENT CONSULTATION Name: PERNELL CERVANTES Room #: REG DINA Gerhard#: [id number] Admission: 11/13/19 Attend Phys: Horace Buchanan MD Discharge: Date of : 39 Report #: [id number] CC: [place] Buchanan DATE OF SERVICE: 11/13/2019 CHIEF COMPLAINT: Pain in the back and down in the right leg. HISTORY: The patient is an 84-year-old female who has been followed in the pain clinic because of chronic pain. She has undergone epidural steroid injections in the past. She has noted that the pain in the lower portion of her back is radiating down into both legs and involving her feet. She perceives weakness in her right leg and notes difficulty in lifting her leg when getting dressed. She notes a burning sensation in her feet in the morning after getting out of bed. Pain is particularly problematic after prolonged walking. She rates her pain as a 4/10. Has used medications to help with the pain. Feels that heat on her back can be beneficial as well. ALLERGIES: No known drug allergies. CURRENT MEDICATIONS: Gabapentin 300 mg t.i.d., ibuprofen 200 mg t.i.d., Ativan 0.5 mg for depression, and Plavix. The patient has stopped taking her Plavix with the hopes of undergoing an injection today. PAIN CLINIC ASSESSMENT/PQRS: 1. The patient is not being treated for osteoarthritis or rheumatoid arthritis. 2. Height 5 feet 7 inches, weight 162 pounds, BMI is 25. 3. Vital signs: Blood pressure 134/62, pulse 92, respiratory rate 16, room air saturation is 100%. 4. Pain intensity 10. 5. Fall history: The patient has not fallen since we saw her last. 6. Blood thinner: The patient has stopped taking her Plavix 1 week ago. 7. Hypertension: The patient is not being treated for hypertension. 8. Opioids: The patient receives medication from [employer]. 9. Risk assessment tool: Low for opioid use. 10. Functional assessment tool, . 11. Recreational drug use: The patient denies. 12. Tobacco: The patient has never smoked. 13. Alcohol: The patient occasionally drinks alcoholic beverages. PHYSICAL EXAMINATION: GENERAL: The patient is a well-developed, well-nourished white female. Appears her stated age. She is alert and oriented x 3. Her affect is appropriate. Speech is fluent. HEENT: Normocephalic, atraumatic. Extraocular eye muscles intact. Sclerae nonicteric. Mucous membranes are moist. NECK: Without adenopathy or JVD. The patient has some ringing in her ears because of a vein near the eardrum. ABDOMEN: Nontender. LUNGS: Generally clear. MUSCULOSKELETAL: Strength is judged to be 5-/5 for the major muscle groups in the upper extremity. The patient without significant scoliosis, kyphosis or lordosis. The patient does have some pain and discomfort radiates down in the back part of her leg in right side. IMPRESSION: 1. Symptomatic lumbar radiculopathy in the low back in the area of the L5-S1 dermatomal distribution involving the left and right leg. 2. Lumbar spondylosis. 3. Dyspepsia. 4. Esophageal reflux. 5. History of hyperlipidemia. 6. Labyrinthitis. RECOMMENDATIONS: We discussed treatment options with the patient. Risks and benefits of an epidural steroid injection were discussed, possible complications of the procedure, which could include but are not limited to infection, worsening of pain, no improvement in pain, nerve damage, bleeding, and the patient elects to proceed. We discussed the problems with COVID-19. It is pandemic. Should the patient become infected, she may have a more difficult time clearing the virus. She elects to proceed with the injection. PROCEDURE NOTE: The patient was taken to the procedure area. She was then assisted in getting on examination table. Her back was sterilely prepped with a Betadine solution. A 0.25% bupivacaine was infiltrated at the L5-S1 area on the right. A 17-gauge Tuohy with loss of resistance technique was used to gain access at the L5-S1 area. Fluoroscopy was used anterior, posterior to confirm appropriate placement. A total of 80 mg Depo-Medrol, 40 mg triamcinolone and 2 mL of 0.25% bupivacaine was injected. The patient tolerated the procedure well. She remained in the Pain Clinic for an appropriate amount of time. She will follow up in the future as needed. A total of 10 seconds fluoroscopy time was used. The patient's pain decreased to 2 at the time of departure. We would like to thank you for letting us participate in her care. We hope she continues to improve. <ELECTRONICALLY SIGNED> By: Horace Buchanan MD 12/04/19 [id number] Horace Buchanan MD /SILVIA
== END ==
LOC: PAIN 06:36
PROVIDERS: ATTEND Anesthesiology Pain Medicine
DX: M54.5 Low back pain (principal); M47.26 Other spondylosis with radiculopathy, lumbar region; K21.9 Gastro-esophageal reflux disease without esophagitis; E78.00 Pure hypercholesterolemia, unspecified; R10.13 Epigastric pain; Z79.899 Other long term (current) drug therapy; Z72.89 Other problems related to lifestyle

== ENCOUNTER → 2020-01-17 | Outpatient (CLI) | payer OTHER, MEDICARE ==
[~2020-01-17] VITALS: Ht 170.2 cm; Wt 73.5 kg
[2020-01-17 09:52] VITALS: BP 130/73
--- NOTE | 2020-01-17 10:23 | NUR ---
Pain Clinic Assessment: 1. History of Osteoarthritis: HANDS History of Rheumatoid Arthritis: NO 2. Height: 5 ft. 7 in. 170.2 cm. Weight: 162.0 lb. oz. 73.483 kg. Patient's BMI: 25.4 3. Vital Signs: BP: 130/73 Pulse: 92 Resp: 16 Temp: 02 Sat: 99 ECG Mon: 4. Pain Intensity: 3 NOW 9 YESTERDAY 5. Fall Risk: Dizziness: N Needs help standing or walking: N Fallen in the last 3 months: N Fall risk comments: 6. Patient on Blood Thinner: Clopidogrel Bisulf(Plavix 7. History of Hypertension: N 8. Opioid Therapy greater than 6 weeks: N Opiate Contract Signed: 9. Risk Assessment Tool Provided: LOW RISK 0/3 10. Functional Assessment Tool: 11. Recreational Drug Use: Never Drug Type: Tobacco Use: Never Smoker Tobacco Type: Amount or Packs/day: How Many Years: Alcohol Use: Yes Frequency: Quant:
== END | disposition home or self-care (01) ==
LOC: PAIN 12-11 10:11
PROVIDERS: ATTEND Anesthesiology Pain Medicine
DX: M47.26 Other spondylosis with radiculopathy, lumbar region (principal); G89.29 Other chronic pain; E78.5 Hyperlipidemia, unspecified; K21.9 Gastro-esophageal reflux disease without esophagitis; Z98.890 Other specified postprocedural states; Z79.899 Other long term (current) drug therapy; Z90.710 Acquired absence of both cervix and uterus; Z79.82 Long term (current) use of aspirin

== ENCOUNTER → 2020-07-22 | Outpatient (CLI) | payer OTHER, MEDICARE ==
[~2020-07-22] VITALS: Ht 170.2 cm; Wt 71.1 kg
[2020-07-22 10:35] VITALS: BP 136/73
--- NOTE | 2020-07-22 10:55 | NUR ---
Pain Clinic Assessment: 1. History of Osteoarthritis: HANDS History of Rheumatoid Arthritis: NO 2. Height: 5 ft. 7 in. 170.2 cm. Weight: 156.8 lb. oz. 71.124 kg. Patient's BMI: 24.6 3. Vital Signs: BP: 136/73 Pulse: 82 Resp: 16 Temp: 02 Sat: 98 ECG Mon: 4. Pain Intensity: 6 5. Fall Risk: Dizziness: N Needs help standing or walking: N Fallen in the last 3 months: N Fall risk comments: 6. Patient on Blood Thinner: Clopidogrel Bisulf(Plavix 7. History of Hypertension: N 8. Opioid Therapy greater than 6 weeks: N Opiate Contract Signed: 9. Risk Assessment Tool Provided: LOW RISK 0 10. Functional Assessment Tool: 11. Recreational Drug Use: Never Drug Type: Tobacco Use: Never Smoker Tobacco Type: Amount or Packs/day: How Many Years: Alcohol Use: No Frequency: Quant:
== END | disposition home or self-care (01) ==
LOC: PAIN 07:02
PROVIDERS: ATTEND Anesthesiology Pain Medicine
DX: M47.26 Other spondylosis with radiculopathy, lumbar region (principal); G89.29 Other chronic pain; E78.5 Hyperlipidemia, unspecified; K21.9 Gastro-esophageal reflux disease without esophagitis; Z90.710 Acquired absence of both cervix and uterus; Z79.899 Other long term (current) drug therapy

== ENCOUNTER → 2020-12-02 | Outpatient (CLI) | payer OTHER, MEDICARE ==
[~2020-12-02] VITALS: Ht 167.6 cm; Wt 70.3 kg
[2020-12-02 10:34] VITALS: BP 162/71
--- NOTE | 2020-12-02 10:38 | NUR ---
Pain Clinic Assessment: 1. History of Osteoarthritis: HANDS History of Rheumatoid Arthritis: NO 2. Height: 5 ft. 6 in. 167.6 cm. Weight: 155.0 lb. oz. 70.308 kg. Patient's BMI: 25.0 3. Vital Signs: BP: 162/71 Pulse: 87 Resp: 16 Temp: 02 Sat: 97 ECG Mon: 4. Pain Intensity: 6 5. Fall Risk: Dizziness: N Needs help standing or walking: N Fallen in the last 3 months: N Fall risk comments: 6. Patient on Blood Thinner: Clopidogrel Bisulf(Plavix 7. History of Hypertension: N 8. Opioid Therapy greater than 6 weeks: N Opiate Contract Signed: 9. Risk Assessment Tool Provided: LOW RISK 0 10. Functional Assessment Tool: 11. Recreational Drug Use: Never Drug Type: Tobacco Use: Never Smoker Tobacco Type: Amount or Packs/day: How Many Years: Alcohol Use: No Frequency: Quant:
== END | disposition home or self-care (01) ==
LOC: PAIN 07:14
PROVIDERS: ATTEND Anesthesiology Pain Medicine
DX: M47.26 Other spondylosis with radiculopathy, lumbar region (principal); G89.29 Other chronic pain; E78.5 Hyperlipidemia, unspecified; K21.9 Gastro-esophageal reflux disease without esophagitis; Z98.890 Other specified postprocedural states; Z79.899 Other long term (current) drug therapy; Z90.710 Acquired absence of both cervix and uterus